=== PATIENT | male | born 1950 | race Hispanic/Latino ===

== ENCOUNTER 2022-06-03 15:17 | Emergency (ER) | payer OTHER ==
--- OUTSIDE RECORDS SUMMARY | 2022-06-03 15:21 | XMS REPORT | Continuity of Care Document ---
:1950 Author Organization [facility] t Address [address] [place] [address] Care Team Providers Name Role Phone Bassem Hooker Attending Clinician Problems Condition Condition Condition Status Onset Resolution Last Treating Co mments Source Name Details Category Date Date Treatment Clinician Date Headache Headache Problem Active 2019-11-22 Memoria (finding) (finding) 22:08:57 l Active Willy Problem 11/22/2019 [facility] Peptic Peptic Problem Active 2019-11-22 Davian ely ulcer ulcer 22:08:57 l (disorder) (disorder) He rmann Active Problem 11/22/2019 [facility] Simple Simple Problem Active 2019-11-22 Davian ely obesity obesity 22:08:57 l (disorder) (disorder) He rmann Active Problem 11/22/2019 [facility] Carpal Carpal Problem Active 2019-11-22 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 Social History Social Habit Start Date Stop Date Quantity Comments Source Social History 2019-07-23 2019-07-23 Linda hallman 18:05:28 18:05:28 Medications Ordered Filled Start Stop Current Ordering Indication Dosage Frequency Signature Comments Components Source Medication Medication Date Date Medication? Clinician (SIG) Name Name gabapentin Yes 300 mg = 1 M emoria 300 MG Oral 3-26 cap, PO, l Capsule 14:32: Bedtime, # Herm [place] 00 30 cap, 3 Refill(s), Pharmacy: [facility] [id number] meloxicam No 0 Memoria 15 mg oral 2-26 Refill(s) l tablet 18:07: [place] 00 omeprazole Yes 0 Memoria 40 mg oral 2-26 Refill(s) l delayed 18:06: [place] release 00 capsule hyoscyamine Yes 0 Memori a 0.125 mg 2-26 Refill(s) l sublingual 18:06: [place] tablet 00 Vital Signs Vital Name Observation Time Observation Value Comments Source Systolic (mm Hg) 2019-08-21 14:20:00 Davian rial [place] Diastolic (mm Hg) 2019-08-21 14:20:00 Mem orial [place] Heart Rate 2019-08-21 14:20:00 [facility] [place] Respitory Rate 2019-08-21 14:20:00 Memori al [place] Height 2019-08-21 14:20:00 175.26 cm [facility] [place] Weight 2019-08-21 14:20:00 [facility] [place] BMI Calculated 2019-08-21 14:20:00 Memori al [place] Temperature Oral (F) 2019-08-21 14:20:00 97.3 F [facility] [place] Systolic (mm Hg) 2019-07-23 17:18:00 Davian rial [place] Diastolic (mm Hg) 2019-07-23 17:18:00 Mem orial [place] Heart Rate 2019-07-23 17:18:00 [facility] [place] Respitory Rate 2019-07-23 17:18:00 Memori al [place] Height 2019-07-23 17:18:00 172.72 cm [facility] [place] Weight 2019-07-23 17:18:00 [facility] [place] BMI Calculated 2019-07-23 17:18:00 Memori al [place] Procedures This patient has no known procedures. Encounters Start End Encounter Admission Attending Care Care Encounter Source Date/Time Date/Time Type Type Clinicians Facility Department ID 2019-11-20 2019-11-20 Ambulatory nullFlavo [facility] [id number] Memoria 20:45:00 20:45:00 Pre-Reg r Neurology 03 l [place] 2019-11-20 2019-11-20 Outpatient MHIE MHIE [id number] Memoria 15:45:00 15:45:00 03 elizabeth Aguilera 2019-11-20 2019-11-20 Outpatient Nhung MHMISCHER MHMISCHER [id number] 15:45:00 15:45:00 Bassem 03 Sudhir 2019-08-21 2019-08-22 Outpatient nullFlavo MNA [id number] Memoria 13:15:00 04:59:59 r Neurology 02 l Luis A Aguilera 2019-08-21 2019-08-21 Outpatient Nhung MHMISCHER MHMISCHER [id number] 08:15:00 23:59:59 Bassem 02 Sudhir 2019-08-21 2019-08-21 Outpatient MHIE MHIE [id number] Memoria 08:15:00 08:15:00 02 elizabeth [place] 2019-07-23 2019-07-24 Outpatient nullFlavo MNA [id number] Memoria 17:30:00 05:59:59 r Neurology 01 l Luis A Aguilera 2019-07-23 2019-07-23 Outpatient Nhung MHMISCHER MHMISCHER [id number] 11:30:00 23:59:59 Bassem Sudhir 2019-07-23 2019-07-23 Ambulatory nullFlavo MNA [id number] Memoria 17:30:00 17:30:00 Pre-Reg r Neurology 00 l Luis A Aguilera 2019-07-23 2019-07-23 Outpatient Nhung MHMISCHER MHMISCHER [id number] 11:30:00 11:30:00 Bassem 00 Sudhir Results This patient has no known results.
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
[2022-06-03] MEDS ORDERED: CYCLOBENZAPRINE 10 MG TAB ONE (16:46)
[2022-06-03] MEDS ORDERED: ACETAMINOPHEN 325 MG TABLET ONE (16:46)
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
[2022-06-03 17:58] VITALS: TEMP 97.9; O2SAT 99
[2022-06-03 17:59] VITALS: BP 140/87
== END 2022-06-03 17:31 | disposition home or self-care (01) ==
LOC: ER 15:17
DX: S16.1XXA Strain of muscle, fascia and tendon at neck level, initial encounter (principal); S39.012A Strain of muscle, fascia and tendon of lower back, initial encounter
CPT/HCPCS: 70450; 72100; 72125; 99284